=== PATIENT | female | born 1980 | race Caucasian/White ===

== ENCOUNTER 2017-12-20 17:16 | Emergency (ER) | payer OTHER ==
[~2017-12-20] VITALS: Ht 154.9 cm; Wt 64.4 kg
[2017-12-20] MEDS ORDERED: PHENTERMINE H37.5 MG (18:06)
[2017-12-20] MEDS ORDERED: Birth Control Pill (18:06)
[2017-12-20] MEDS ORDERED: ASPIRIN 325 MG TAB PO ONE (18:15)
== END 2017-12-20 19:00 | disposition left against medical advice (07) ==
LOC: FSED 17:16
DX: R07.89 Other chest pain (principal)
CPT/HCPCS: 99281